=== PATIENT | female | born 1985 ===

== ENCOUNTER 2018-11-22 14:36 | Emergency (ER) | payer MEDICAID, OTHER ==
[2018-11-22 14:37] VITALS: BMI 34.0
[2018-11-22 15:03] VITALS: BP 122/74; PULSE 93; RESP 16; TEMP 99.2; O2SAT 99
--- NOTE | 2018-11-22 16:21 | ED PDOC ---
HPI: General Adult Time Seen by Provider: 11/22/18 15:16 Chief Complaint (Nursing): Cough, Cold, Congestion Chief Complaint (Provider): Nasal Congestion History Per: Patient History/Exam Limitations: no limitations Onset/Duration Of Symptoms: Days (x 2) Current Symptoms Are (Timing): Still Present Additional Complaint(s): 33 year old female with no medical history presents to the ED with two days of nasal congestion. Patient only reports difficulty breathing through her nose. Denies fever, sore throat, cough, abdominal pain, and other complaints. PMD: Dr. Matthew Moncada Past Medical History Reviewed: Historical Data, Nursing Documentation, Vital Signs Vital Signs: Last Vital Signs Temp 99.2 F 11/22/18 15:00 Pulse 93 H 11/22/18 15:00 Resp 16 11/22/18 15:00 BP 122/74 11/22/18 15:00 Pulse Ox 99 11/22/18 15:00 - Medical History PMH: No Chronic Diseases - Surgical History Surgical History: No Surg Hx - Family History Family History: States: Unknown Family Hx - Home Medications Home Medications: Ambulatory Orders Medication Instructions Recorded Multivit/Folic Acid/I 1 tab PO DAILY 08/06/16 [ Plus] Ibuprofen [Motrin Tab] 600 mg PO Q6 PRN #30 tab 08/08/16 Loratadine [Claritin] 10 mg PO DAILY PRN #10 tab 11/22/18 - Allergies Allergies/Adverse Reactions: Allergies Allergy/AdvReac Type Severity Reaction Status Date / Time No Known Allergies Allergy Verified 11/22/18 15:00 Review of Systems ROS Statement: Except As Marked, All Systems Reviewed And Found Negative Constitutional: Negative for: Fever ENT: Positive for: Nose Congestion. Negative for: Throat Pain Cardiovascular: Negative for: Chest Pain Respiratory: Negative for: Cough Gastrointestinal: Negative for: Abdominal Pain Physical Exam - Reviewed Nursing Documentation Reviewed: Yes Vital Signs Reviewed: Yes - Physical Exam Appears: Positive for: Non-toxic, No Acute Distress Head Exam: Positive for: ATRAUMATIC, NORMAL INSPECTION, NORMOCEPHALIC Skin: Positive for: Normal Color, Warm, Dry. Negative for: Rash Eye Exam: Positive for: EOMI, Normal appearance, PERRL ENT: Positive for: Nasal Congestion Neck: Positive for: Normal, Painless ROM, Supple Cardiovascular/Chest: Positive for: Regular Rate, Rhythm. Negative for: Murmur Respiratory: Positive for: Normal Breath Sounds. Negative for: Respiratory Distress Gastrointestinal/Abdominal: Positive for: Normal Exam, Soft. Negative for: Tenderness Back: Positive for: Normal Inspection. Negative for: L CVA Tenderness, R CVA Tenderness Extremity: Positive for: Normal ROM (x 4) Neurologic/Psych: Positive for: Alert, Oriented (x 3). Negative for: Motor/Sensory Deficits - ECG O2 Sat by Pulse Oximetry: 99 (RA) Pulse Ox Interpretation: Normal Medical Decision Making Medical Decision Makin:39 Impression: cold Initial Plan: --Claritin 10 mg PO Scribe Attestation: Documented by Starr Quigley, acting as a scribe for Serena Franco MD Provider Scribe Attestation: All medical record entries made by the Scribe were at my direction and personally dictated by me. I have reviewed the chart and agree that the record accurately reflects my personal performance of the history, physical exam, medical decision making, and the department course for this patient. I have also personally directed, reviewed, and agree with the discharge instructions and disposition. Disposition - Clinical Impression Clinical Impression: URI (upper respiratory infection), - Disposition Disposition: Routine/Home Disposition Time: 15:44 Condition: STABLE Additional Instructions: FOLLOW-UP WITH [facility] WITHIN 2 DAYS FOR REEVALUATION. Prescriptions: Loratadine [Claritin] 10 mg PO DAILY PRN #10 tab PRN Reason: Allergy Symptoms Instructions: Medications and , Cough, Runny Nose, and the Common Cold (DC) Forms: [employer] ([place])
== END 2018-11-22 17:44 | disposition home or self-care (01) ==
LOC: H.ER 14:36
DX: O99.519 Diseases of the respiratory system complicating pregnancy, unspecified trimester (principal); J06.9 Acute upper respiratory infection, unspecified

== ENCOUNTER 2019-03-06 11:31 | Emergency (ER) | payer OTHER ==
[2019-03-06 17:47] VITALS: BP 111/70; PULSE 89
== END 2019-03-06 12:50 | disposition home or self-care (01) ==
LOC: H.EROB2 11:31 → H.L&D 11:57 → H.EROB2 12:50
DX: O26.853 Spotting complicating pregnancy, third trimester (principal); Z3A.38 38 weeks gestation of pregnancy

== ENCOUNTER 2019-03-07 03:40 | Inpatient (IN) | payer OTHER ==
[2019-03-07 04:10] VITALS: BMI 34.2
[2019-03-07] MEDS ORDERED: Lactated Ringer's 1,000 ML IV ONE (04:10)
[2019-03-07] MEDS ORDERED: Oxytocin 30 UNIT in NS 500 ml 30 UNITS/500 ML BAG IV ONE (04:12)
[2019-03-07] MEDS ORDERED: Lactated Ringer's 1,000 ML IV SCH ×2 (04:15→05:15)
[2019-03-07] MEDS ORDERED: Lidocaine 1% Inj (20ml) ONE (04:30)
[2019-03-07] MEDS ORDERED: Bupivacaine HCl 0.5% PF (30 ml) Inj ONE (04:44)
[2019-03-07 04:47] LABS: BASO % 0.5 % (0.0-2.0); EOS # 0.2 K/uL (0.0-0.7); EOS % 1.5 % (0.0-4.0); HEMOGLOBIN 13.1 g/dL (12.0-16.0); LYMPH # 2.2 K/uL (1.0-4.3); LYMPH % 20.9 % (20.0-40.0); MEAN CELL VOLUME 88.3 fl (81.0-99.0); MEAN CORPUSCULAR HEMOGLOBIN 29.3 pg (27.0-31.0); MEAN CORPUSCULAR HGB CONC 33.2 g/dL (33.0-37.0); MONO # 0.5 K/uL (0.0-0.8); MONO % 4.6 % (0.0-10.0); NEUT # 7.5 K/uL (1.8-7.0); NEUT % 72.5 % (50.0-75.0); NRBC % 0.1 % (0.0-0.0); RBC 4.48 Mil/uL (3.80-5.20); RED CELL DISTRIBUTION WIDTH 15.4 % (11.5-14.5); WHITE BLOOD COUNT 10.3 K/uL (4.8-10.8)
[2019-03-07 04:58] VITALS: RESP 18; O2SAT 100
--- NOTE | 2019-03-07 07:09 | OBHP ---
Datetime: 03/07/2019 04:40 IP Admit Plan: Initiate labor protocol Pelvic Type - PN: Adequate Extremities - PN: Normal Abdomen - PN: Normal Back - PN: Normal Breast - PN: Not Done Lungs - PN: Normal Heart - PN: Normal Thyroid - PN: Not Done Neurologic - PN: Not Done HEENT - PN: Normal General - PN: Normal Contraction Comments Provider: Q2-3 mins Comments, ACOG Physical Exam: Chest: RRR, S1S2 present Lungs: CTAB ABd: Gravid, soft, ND Ext: No pedal edema SVE: 8/80%/-2 IP Hx Assessment: The History has been Reviewed and is Current EGA AdmitDate IP: 38.4 Vital Signs Provider: Reviewed; Within Normal Limits IP Chief Complaint: Uterine contractions; Maternal discomfort Dilatation, Provider: 8 Effacement, Provider: 80 Station, Provider: -2 Genitourinary Exam: Normal DTRs - PN: Not Done Datetime: 03/07/2019 04:30 IP Adm Impression: Term, intrauterine ; Active labor; Intact Membranes Presentation-Admit: Vertex FHR - Baseline A Provider: 150 Membranes, Provider: Intact Pool Provider: Negative NICHD Variability Prov Fetus A: Moderate 6-25bpm NICHD Accel Fetus A IP Provider: 15X15 FHR Category Provider Fetus A: Category I NICHD Decel Fetus A IP Provider: None Datetime: 03/06/2019 12:00 Admit Comment, IP Provider: 33 y/o female at 38.3 wk GA presents to [facility] w/ c/o vaginal spot ting that began this morning. She denies contractions, VB, VFL. Endorses movements. Denies rece nt sex. Denies n/v/d/c/urinary sx. Ob: [facility] Pmhx: denies HomeRx: vitamins Allergies: NKDA SocialHx: denies Famhx: denies SurgHx: Tonsillectomy ROS: all systems reviewed and negative except per HPI Physical Exam: Gen: Sitting up comfortably in bed Heart: S1S2 present, RRR Lungs: normal breathing effort; clear to auscultation bilaterally Abd: Gravid, normal BS, soft non-tender SVE: (chaperoned by Dr. Mas) 1 cm high Extremities: no swelling/erythema/tenderness Assessment and Plan 33 y/o female at 38.3 wk IUP SVE: 1cm posterior. No signs of active bleeding Patient is not lashonda. NST reactive w/ moderate variability labs reviewed: GBS neg, HIV neg, RPR neg, HBsAg neg Patient is stable for discharge to home w/ instructions to follow up w/ OB. She has an appointment tomorrow, 03/07/2019. ER precautions given. Case discussed w/ attending, Dr. Chace Hernandez, pgyi OB Hospitalist note. Pt seen and examiend with PGY1 Agree with note MAHNDO Gestation - Est Wks by US: 38.3
--- NOTE | 2019-03-07 07:09 | OBDCSUM ---
Datetime: 03/06/2019 12:41 Discharge Diagnosis, Provider: False Labor - Undelivered
--- NOTE | 2019-03-07 07:11 | OBADHP ---
Datetime: 03/07/2019 04:40 Pelvic Type - PN: Adequate Extremities - PN: Normal Abdomen - PN: Normal Back - PN: Normal Breast - PN: Not Done Lungs - PN: Normal Heart - PN: Normal Thyroid - PN: Not Done Neurologic - PN: Not Done HEENT - PN: Normal General - PN: Normal Contraction Comments Provider: Q2-3 mins Comments, ACOG Physical Exam: Chest: RRR, S1S2 present Lungs: CTAB ABd: Gravid, soft, ND Ext: No pedal edema SVE: 8/80%/-2 IP Hx Assessment: The History has been Reviewed and is Current Vital Signs Provider: Reviewed; Within Normal Limits IP Chief Complaint: Uterine contractions; Maternal discomfort Dilatation, Provider: 8 Effacement, Provider: 80 Station, Provider: -2 Genitourinary Exam: Normal DTRs - PN: Not Done EGA AdmitDate IP: 38.4 IP Admit Plan: Initiate labor protocol Datetime: 03/07/2019 04:30 Admit Comment, IP Provider: 33 y/o , 38.4 wks based on LMP with [facility] 03/17/19 presents to [facility] c omplaing of CTx. CTx started 1 am today, progresively increasing in intensity, Q2-3 mins. Reports thi ch bloody vaginal discuarge. Good movements. Denies LOF. care: [facility], Last 02/19/19. Cephalic PMHx: Denies PSHx: Tonsillectomy Alleries: NKDA F/H: Denies SocialHx: Denies PE Gen: NAD Chest: RRR, S1S2 present Lungs: CTAB ABd: Gravid, soft, ND Ext: No pedal edema SVE: 8/80%/-2 A/P: 33 y/o , 38.4 wks based on LMP with [facility] 03/17/19 presents to [facility] complaing of CTx. - HIV neg, RPR neg, HBsAg neg - /-2 - [place] and EFM as above - admit for active labor case discussed with Dr. Chace Lal OB Hospitalist note. Pt seen and examiend with PGY1 Agree with note MAHNDO pain management discus sed/wants epidural Presentation-Admit: Vertex FHR - Baseline A Provider: 150 Membranes, Provider: Intact Pool Provider: Negative NICHD Variability Prov Fetus A: Moderate 6-25bpm NICHD Accel Fetus A IP Provider: 15X15 FHR Category Provider Fetus A: Category I NICHD Decel Fetus A IP Provider: None IP Adm Impression: Term, intrauterine ; Active labor; Intact Membranes Datetime: 03/06/2019 12:00 Gestation - Est Wks by US: 38.3
--- NOTE | 2019-03-07 09:40 | OBDS ---
LABOR SUMMARY EDC: 03/17/2019 00:00 No. Babies in Womb: 1 LABOR INFORMATION Onset of Labor: 03/07/2019 01:00 Group B Beta Strep: Negative MEMBRANES Membranes Rupture Method: Artificial Rupture of Membranes: 03/07/2019 07:40 Amniotic Fluid Color: Clear Amniotic Fluid Amount: Moderate Amniotic Fluid Odor: Normal
[2019-03-07] MEDS ORDERED: ceFAZolin 2 GM in Sodium Chloride 0.9% 100 ML IVPB ONE (10:03)
[2019-03-07] MEDS ORDERED: Oxycodone/Acetaminophen 5/325 mg Tab PO PRN ×2 (13:19)
[2019-03-07] MEDS: Benzocaine/Menthol SPRAY TOP PRN (20:25)
[2019-03-08] MEDS: Prenatal Multivit/Folic Acid/Iron Tab PO SCH (08:46)
[2019-03-08] MEDS ORDERED: Prenatal Multivit/Folic Acid/Iron Tab PO SCH ×2 (09:00)
[2019-03-09] MEDS: Prenatal Multivit/Folic Acid/Iron Tab PO SCH (08:29)
--- NOTE | 2019-03-09 08:45 | OBPPN ---
Datetime: 03/09/2019 06:00 PP Pain Prov: Within normal limits PP Nausea Prov: Denies PP Flatus Prov: Yes PP BM Prov: No PP Breasts Prov: Not Done PP Heart Prov: Normal PP Lungs Prov: Normal PP Abdomen/Uterus Prov: Normal PP Lochia Prov: Normal PP Vulva/Perineum Prov: Normal PP CVA Tenderness Prov: Normal PP Extremities Prov: Normal PP C/S Incision Prov: Not Applicable PP Progress Prov: Normal PP Impression Prov: Normal progression PP Plan Prov: Continue present management PP Progress Note Prov: 33 y/o F S/P on PPD 2 Patient seen and examined at bedside. Reports ambulating well. Pain well controlled with pain medi cations. and formula feeding w/o difficulties. Tolerating regular diet well w/o nuasea or vomiting. Denies fever, chills, CP, SOB, dizziness. Passing flatus but no BM yet. VSS PE: Gen: NAD Chest: RRR, S1S2 present Lungs: CTAB Abdomen: Appropriated tednrness to palptation on uterus, Uterus at umbilicus, BS+ Ext: No pedal edema, No calf tenderness Neuro: AAO x 3, CN 2-12 intact grossly, Normal mood and affact A/P: 33 y/o F S/P on PPD 2 Continue present management. Patient afebrile and pain well cotrolled with painmeds Encourage ambulation and brestfeeding. Ibuprofen for pain Paitent would like to have IUD for contraception Anticipated D/C today, 03/09/19 Case discussed with Ob attneding Baljit Lal, PGY1 Patient was seen with the resident and agree with the note Vital Signs Provider PP: Reviewed; Within Normal Limits
[2019-03-09] MEDS: Benzocaine/Menthol SPRAY TOP PRN (13:40)
[2019-03-10 03:31] VITALS: BP 102/53; PULSE 91; TEMP 99.3
== END 2019-03-09 16:00 | disposition home or self-care (01) | DRG 373 ==
LOC: H.EROB2 03:40 → H.L&D 04:10 → H.OB/GYN 13:12
PROVIDERS: ADMIT Obstetrics & Gynecology; ATTEND Obstetrics & Gynecology
PROC: 10E0XZZ Delivery of Products of Conception, External Approach (ICD-10-PCS; principal; 2019-03-07)
PROC: 10907ZC Drainage of Amniotic Fluid, Therapeutic from Products of Conception, Via Natural or Artificial Opening (ICD-10-PCS; 2019-03-07)
DX: O80 Encounter for full-term uncomplicated delivery (principal); Z37.0 Single live birth; Z3A.38 38 weeks gestation of pregnancy